=== PATIENT | female | born 1955 | race Caucasian/White ===

== ENCOUNTER 2016-11-14 12:12 | Emergency (ER) | payer OTHER ==
--- NOTE | 2016-11-14 14:01 | UC ---
Minor Trauma HPI - HPI Summary HPI Summary: tepped going down one step outdoors yesterday, fell onto R side on concrete. Has abrasions to R knee and elbow with some soreness, but does not think anything is broken as she has full ROM and function in RUE and RLE. Also hit face in fall and has marked swelling, tenderness, and bruising to R face, mainly tender over R cheekbone. No pain in neck, denies HOOVER, LOC, vomiting, dizziness, or memory problems. - History of Current Complaint Chief Complaint: UCTrauma Stated Complaint: FACIAL INJURY Time Seen by Provider: 11/14/16 13:49 Hx Obtained From: Patient ?: No Onset/Duration: Sudden Onset Onset Of Pain: Immediate Severity Initially: Mild Severity Currently: Moderate Mechanism Of Injury: Fall From A Standing Position Aggravating Factor(s): Nothing Alleviating Factor(s): Nothing Associated Signs And Symptoms: Positive: Ecchymosis, Swelling. Negative: Loss Of Consciousness - Allergies/Home Medications Allergies/Adverse Reactions: Allergies Allergy/AdvReac Type Severity Reaction Status Date / Time Codeine Allergy Rash Verified 11/14/16 13:34 Home Medications: Home Medications Hydrochlorothiazide TAB* [Hydrodiuril TAB*] 25 mg PO DAILY 11/14/16 [History Confirmed 11/14/16] PMH/Surg Hx/FS Hx/Imm Hx Endocrine History Of: Denies: Diabetes, Thyroid Disease Cardiovascular History Of: Reports: Hypertension Denies: Cardiac Disorders Respiratory History Of: Denies: COPD, Asthma GI/ History Of: Denies: Ulcer Cancer History Of: Denies: Breast Cancer - Surgical History Surgical History: Yes Surgery Procedure, Year, and Place: foot surgery, Hysterectomy, right knee meniscus repair - Family History Known Family History: Positive: Other - NONCONTRIBUTORY - Social History Lives: With Family Alcohol Use: Occasionally Substance Use Type: None Smoking Status (MU): Former Smoker Amount Used/How Often: quit 8 years ago Review of Systems Constitutional: Negative Skin: Bruising, Other - abrasions Eyes: Negative ENT: Negative Respiratory: Negative Cardiovascular: Negative Gastrointestinal: Negative Genitourinary: Negative Motor: Negative Neurovascular: Negative Musculoskeletal: Negative Neurological: Negative Psychological: Negative All Other Systems Reviewed And Are Negative: Yes Physical Exam Triage Information Reviewed: Yes Appearance: Well-Appearing, Well-Nourished Vital Signs: Initial Vital Signs Temp 98.2 F 11/14/16 13:29 Pulse 81 11/14/16 13:29 Resp 16 11/14/16 13:29 BP 149/74 11/14/16 13:29 Vital Signs Reviewed: Yes Eye Exam: Normal, Other - EOM-I Eyes: Positive: Conjunctiva Clear, Other: - PERRL ENT: Positive: Hearing grossly normal, Pharynx normal, TMs normal, Other: - tender over R zygoma. Negative: Tonsillar swelling, Tonsillar exudate Dental Exam: Normal Dental: Negative: Percussion Tenderness @, Gross Decay/Caries @, Dental Fracture @ Neck exam: Normal Neck: Positive: Supple, Nontender Respiratory Exam: Normal Respiratory: Positive: Chest non-tender, Lungs clear, Normal breath sounds, No respiratory distress, No accessory muscle use Cardiovascular Exam: Normal Cardiovascular: Positive: RRR, No Murmur Musculoskeletal Exam: Normal Musculoskeletal: Positive: Strength Intact, ROM Intact Neurological Exam: Normal Neurological: Positive: Alert Psychological Exam: Normal Skin Exam: Normal Minor Trauma Course/Dx - Differential Dx/Diagnosis Provider Diagnoses: R knee abrasion. R face contusion. R face abrasion. R elbow abrasion Discharge - Discharge Plan Condition: Stable Disposition: HOME Patient Education Materials: Abrasion (ED), Contusion in Adults (ED) Referrals: Shin Shultz MD [Primary Care Provider] - Additional Instructions: Call or return if you have new or prolonged symptoms.
--- NOTE | 2016-11-14 14:51 | RAD ---
HISTORY: Facial trauma, swelling and pain COMPARISONS: None TECHNIQUE: Multiple contiguous axial CT scans were obtained of the face without intravenous contrast, with coronal and sagittal multiplanar reformations. FINDINGS: BONES: There is no displaced fracture or dislocation. The orbital rim is intact. The zygomatic arch is intact. The pterygoid plates are intact. Degenerative changes are noted of the spine ORBITS: The globes are round. The optic nerves are symmetric. The extraocular musculature is normal. There is no post septal or intraconal inflammatory change. There is no retrobulbar hematoma. PARANASAL SINUSES: The paranasal sinuses are clear. BRAIN AND SOFT TISSUE: There is a small right malar hematoma. OTHER: None. IMPRESSION: NO FACIAL FRACTURE. RIGHT FACIAL HEMATOMA.
[2016-11-14 15:31] VITALS: BP 140/68
== END 2016-11-14 23:06 | disposition home or self-care (01) ==
LOC: UCEAST 12:12
DX: S80.211A Abrasion, right knee, initial encounter (principal); S00.81XA Abrasion of other part of head, initial encounter; S50.311A Abrasion of right elbow, initial encounter; S00.83XA Contusion of other part of head, initial encounter; W10.9XXA Fall (on) (from) unspecified stairs and steps, initial encounter; Y93.9 Activity, unspecified; Y92.9 Unspecified place or not applicable; Z88.5 Allergy status to narcotic agent; I10 Essential (primary) hypertension; Z90.710 Acquired absence of both cervix and uterus; Z87.891 Personal history of nicotine dependence
CPT/HCPCS: 70486; 99212; G0463

== ENCOUNTER 2016-11-26 11:32 | Emergency (ER) | payer OTHER ==
[2016-11-26 13:23] VITALS: BP 137/78
--- NOTE | 2016-11-26 13:49 | UC ---
Respiratory Complaint HPI - HPI Summary HPI Summary: head congestion/fullness and cough mother and boyfriend with similar sx---no fevers - History of Current Complaint Chief Complaint: UCGeneralIllness Stated Complaint: RESP ISSUE Time Seen by Provider: 11/26/16 13:27 Hx Obtained From: Patient ?: No Onset/Duration: Gradual Onset, Lasting Days - 3, Still Present Timing: Constant Severity Initially: Mild Severity Currently: Mild Pain Intensity: 3 Pain Scale Used: 0-10 Numeric Character: Cough: Productive Aggravating Factors: Nothing Alleviating Factors: Nothing Associated Signs And Symptoms: Positive: URI, Nasal Congestion, Sinus Discomfort - Allergies/Home Medications Allergies/Adverse Reactions: Allergies Allergy/AdvReac Type Severity Reaction Status Date / Time Codeine Allergy Rash Verified 11/26/16 13:23 PMH/Surg Hx/FS Hx/Imm Hx Previously Healthy: No Endocrine History Of: Denies: Diabetes, Thyroid Disease Cardiovascular History Of: Reports: Hypertension Denies: Cardiac Disorders Respiratory History Of: Denies: COPD, Asthma GI/ History Of: Denies: Ulcer Cancer History Of: Denies: Breast Cancer - Surgical History Surgical History: Yes Surgery Procedure, Year, and Place: foot surgery, Hysterectomy, right knee meniscus repair - Family History Known Family History: Positive: Other - NONCONTRIBUTORY - Social History Occupation: Employed Full-time Lives: With Family Alcohol Use: Occasionally Substance Use Type: None Smoking Status (MU): Former Smoker Amount Used/How Often: 2008 Review of Systems Constitutional: Negative Skin: Negative Eyes: Negative ENT: Ear Ache, Nasal Discharge Respiratory: Cough Cardiovascular: Negative Gastrointestinal: Negative Genitourinary: Negative Motor: Negative Neurovascular: Negative Musculoskeletal: Negative Neurological: Headache Psychological: Negative All Other Systems Reviewed And Are Negative: Yes Physical Exam Triage Information Reviewed: Yes Appearance: Well-Appearing, No Pain Distress, Well-Nourished Vital Signs: Initial Vital Signs Temp 98.1 F 11/26/16 13:15 Pulse 74 11/26/16 13:15 Resp 16 11/26/16 13:15 BP 137/78 11/26/16 13:15 Pulse Ox 98 11/26/16 13:15 Vital Signs Reviewed: Yes Eye Exam: Normal Eyes: Positive: Conjunctiva Clear ENT Exam: Normal ENT: Positive: Normal ENT inspection, Hearing grossly normal, Pharynx normal, Nasal congestion, Nasal drainage, TMs normal. Negative: Tonsillar swelling, Tonsillar exudate, Trismus, Muffled/hoarse voice Dental Exam: Normal Neck exam: Normal Neck: Positive: Supple, Nontender, No Lymphadenopathy Respiratory Exam: Normal Respiratory: Positive: Chest non-tender, Lungs clear, Normal breath sounds, No respiratory distress, No accessory muscle use Cardiovascular Exam: Normal Cardiovascular: Positive: RRR, No Murmur, Pulses Normal, Brisk Capillary Refill Musculoskeletal Exam: Normal Musculoskeletal: Positive: Strength Intact, ROM Intact, No Edema Neurological Exam: Normal Neurological: Positive: Alert, Muscle Tone Normal Psychological Exam: Normal Psychological: Positive: Normal Response To Family, Age Appropriate Behavior Skin Exam: Normal UC Diagnostic Evaluation - Laboratory O2 Sat by Pulse Oximetry: 98 Respiratory Course/Dx - Course Course Of Treatment: flonase may add antibiodics if sy continue over the next week follow with pcp, re-check BP with pcp - Differential Dx/Diagnosis Differential Diagnosis/HQI/PQRI: Bronchitis, CHF, Laryngitis, Sinusitis Provider Diagnoses: Rhinosinusitis Discharge - Discharge Plan Condition: Stable Disposition: HOME Prescriptions: Amoxicillin/Clavulanate TAB* [Augmentin TAB 875*] 875 mg PO BID #20 tab Fluticasone NASAL * [Flonase *] 2 spray BOTH NARES DAILY #1 bottle Patient Education Materials: Rhinosinusitis (ED), How to Use Nasal Mcgrath (ED) Referrals: Shin Shultz MD [Primary Care Provider] - If Needed
== END 2016-11-26 14:11 | disposition home or self-care (01) ==
LOC: UCEAST 11:32
DX: J32.9 Chronic sinusitis, unspecified (principal); I10 Essential (primary) hypertension; Z87.891 Personal history of nicotine dependence; Z88.5 Allergy status to narcotic agent
CPT/HCPCS: 99212; G0463

== ENCOUNTER 2017-06-06 10:04 | Emergency (ER) | payer OTHER ==
[2017-06-06 10:17] VITALS: BP 137/75
--- NOTE | 2017-06-06 12:50 | UC ---
Throat Pain/Nasal Mac HPI - HPI Summary HPI Summary: ST, nasal congestion, stuffy ears since yesterday. No fever or trouble breathing. Lives with 94-year-old mother, concerned about passing it to her. Melanie has had similar symptoms. - History of Current Complaint Chief Complaint: UCRespiratory Stated Complaint: SORE THROAT,RUNNING NOSE Time Seen by Provider: 06/06/17 12:16 Hx Obtained From: Patient Hx Last Menstrual Period: hysterectomy ?: No Onset/Duration: Gradual Onset, Lasting Days Cough: None Associated Signs & Symptoms: Positive: Sinus Discomfort, Nasal Discharge. Negative: Fever, Vomiting, Rash - Allergies/Home Medications Allergies/Adverse Reactions: Allergies Allergy/AdvReac Type Severity Reaction Status Date / Time Codeine Allergy Rash Verified 11/26/16 13:23 PMH/Surg Hx/FS Hx/Imm Hx Cardiovascular History: Hypertension Psychological History: Anxiety - Surgical History Surgical History: Yes Surgery Procedure, Year, and Place: foot surgery, Hysterectomy, right knee meniscus repair - Family History Known Family History: Positive: Other - NONCONTRIBUTORY - Social History Occupation: Employed Full-time Lives: With Family Alcohol Use: Rare Substance Use Type: None Smoking Status (MU): Former Smoker Amount Used/How Often: 2008 - Immunization History Most Recent Influenza Vaccination: UTD Review of Systems Constitutional: Negative Skin: Negative Eyes: Negative ENT: Sore Throat, Ear Ache, Nasal Discharge Respiratory: Negative Cardiovascular: Negative Gastrointestinal: Negative Genitourinary: Negative Motor: Negative Neurovascular: Negative Musculoskeletal: Negative Neurological: Negative Psychological: Negative Is Patient Immunocompromised?: No All Other Systems Reviewed And Are Negative: Yes Physical Exam Triage Information Reviewed: Yes Appearance: Well-Appearing, Obese Vital Signs: Initial Vital Signs Temp 96.7 F 06/06/17 10:11 Pulse 82 06/06/17 10:11 Resp 16 06/06/17 10:11 BP 137/75 06/06/17 10:11 Pulse Ox 94 06/06/17 10:11 Vital Signs Reviewed: Yes Eye Exam: Normal Eyes: Positive: Conjunctiva Clear ENT: Positive: Hearing grossly normal, Pharynx normal, Nasal congestion, TMs normal. Negative: Nasal drainage, TM bulging, TM dull, TM red, Hoarse voice Dental Exam: Normal Neck exam: Normal Neck: Positive: Supple, Nontender, No Lymphadenopathy Respiratory Exam: Normal Respiratory: Positive: Chest non-tender, Lungs clear, Normal breath sounds, No respiratory distress, No accessory muscle use Cardiovascular Exam: Normal Cardiovascular: Positive: RRR, No Murmur Musculoskeletal Exam: Normal Neurological Exam: Normal Neurological: Positive: Alert Psychological Exam: Normal Skin Exam: Normal Throat Pain/Nasal Course/Dx - Differential Dx/Diagnosis Provider Diagnoses: URI, likely viral Discharge - Discharge Plan Condition: Stable Disposition: HOME Patient Education Materials: Upper Respiratory Infection (ED) Referrals: Shin Shultz MD [Primary Care Provider] - 1 Week Additional Instructions: No signs of airway problems or secondary infection at this time. I would not be surprised if you have some worsening for a few days before you see improvement ( especially if you start to cough). Call or return if you develop increasing fever, shortness of breath, chest pain , bloody sputum, or otherwise worsen. If you have not improved at all after several days, contact your primary care physician or return here.
== END 2017-06-06 12:55 | disposition home or self-care (01) ==
LOC: UCEAST 10:04
DX: J06.9 Acute upper respiratory infection, unspecified (principal); Z87.891 Personal history of nicotine dependence
CPT/HCPCS: 99211; G0463

== ENCOUNTER 2017-06-12 10:59 | Emergency (ER) | payer OTHER ==
[2017-06-12 11:40] VITALS: BP 139/82
--- NOTE | 2017-06-12 13:26 | UC ---
Throat Pain/Nasal Mac HPI - HPI Summary HPI Summary: 61 y/o female presents to the urgent care c/o nasal congestion with green nasal discharge, productive cough for the past week. Pt reports she was seen here on 06/06/2017 Dx with URI and her symptoms are getting worse. She has subjective fever at home and mild HOOVER. she has taken Tylenol PO to alleviate symptoms. sinus pain and HOOVER is 5/10. Pt denies SOB, wheezing, chest pain, abdominal pain, N/V/D - History of Current Complaint Chief Complaint: UCRespiratory Stated Complaint: URI Time Seen by Provider: 06/12/17 12:44 Hx Obtained From: Patient Hx Last Menstrual Period: hysterectomy ?: No Onset/Duration: Gradual Onset, Lasting Weeks - 1 week, Still Present Severity: Severe Pain Intensity: 7 Pain Scale Used: 0-10 Numeric Cough: Sputum Appears - green Associated Signs & Symptoms: Positive: Sinus Discomfort, Nasal Discharge - green nasal discharge with sinus pain and pressure - Epiglottits Risk Factors Epiglottis Risk Factors: Negative - Allergies/Home Medications Allergies/Adverse Reactions: Allergies Allergy/AdvReac Type Severity Reaction Status Date / Time Codeine Allergy Rash Verified 06/12/17 11:40 PMH/Surg Hx/FS Hx/Imm Hx Previously Healthy: Yes Cardiovascular History: Hypertension - Surgical History Surgical History: Yes Surgery Procedure, Year, and Place: foot surgery, Hysterectomy, right knee meniscus repair - Family History Known Family History: Positive: Cardiac Disease, Diabetes - Social History Occupation: Employed Full-time Lives: With Family Alcohol Use: Rare Substance Use Type: None Smoking Status (MU): Former Smoker Amount Used/How Often: 2008 - Immunization History Most Recent Influenza Vaccination: UTD Review of Systems Constitutional: Fever - subjective fever at home Skin: Negative Eyes: Negative ENT: Sore Throat, Nasal Discharge, Sinus Congestion, Sinus Pain/Tenderness Respiratory: Cough - with green sputum Cardiovascular: Negative Gastrointestinal: Negative Genitourinary: Negative Motor: Negative Neurovascular: Negative Musculoskeletal: Negative Neurological: Headache - mild Psychological: Negative Is Patient Immunocompromised?: No All Other Systems Reviewed And Are Negative: Yes Physical Exam Triage Information Reviewed: Yes Vital Signs: Initial Vital Signs Temp 97.8 F 06/12/17 11:36 Pulse 89 06/12/17 11:36 Resp 16 06/12/17 11:36 BP 139/82 06/12/17 11:36 Pulse Ox 99 06/12/17 11:36 - Additional Comments Vitals: reviewed General: Well developed, well-nourished obese female sititng in the examining table with NAD. Head and face: Normocephalic and atraumatic, Positive tenderness over the frontal and maxillary sinuses.. Eyes: PERRLA, EOMI x 2. Normal conjunctiva. No eye discharge. ENT: Ears and TM with normal limits. Nose: with yellowish discharge and erythematous mucosa. Pharynx with erythema, no exudate. Neck: Supple, no JVD, no carotid bruits and no lymphadenopathy. Lungs: clear, no rales, no rhonchi, no wheezes. CVS: RRR, S1 and S2 present no murmurs or gallops appreciated. Abdomen: soft nontender with positive bowel sounds. Extremities: no edema noted. Neuro: WNL. Skin: warm and dry Throat Pain/Nasal Course/Dx - Course Course Of Treatment: 61 y/o female presents to the urgent care c/o nasal congestion with green nasal discharge, productive cough for the past week. Pt reports she was seen here on 06/06/2017 Dx with URI and her symptoms are getting worse. She has subjective fever at home and mild HOOVER. she has taken Tylenol PO to alleviate symptoms. sinus pain and HOOVER is 5/10. Pt denies SOB, wheezing, chest pain, abdominal pain, N/V/D. Hx obtained. Pt with sinusitis on examination. Pt with more 1 week of symptoms getting worse. Pt Rx Amoxicillin PO. Tessalon PO for cough. Discharge instructions explained to Pt. Advised to Return to the clinic or PCP if symptoms do not improve.Pt understood and agreed with plan of care. - Differential Dx/Diagnosis Differential Diagnosis/HQI/PQRI: Influenza, Mononucleosis, Peritonsillar Abscess , Pharyngitis, Sinusitis, Tonsillitis, Other - bronchitis Provider Diagnoses: 1- Acute bacterial sinusitis. 2-cough Discharge - Discharge Plan Condition: Stable Disposition: HOME Prescriptions: Amoxicillin PO (*) [Amoxicillin 875 MG (*)] 875 mg PO BID #20 tab Benzonatate CAP* [Tessalon 100 MG CAP*] 100 mg PO TID PRN #15 cap PRN Reason: Cough Patient Education Materials: Sinusitis (ED) Referrals: Shin Shultz MD [Primary Care Provider] - If Needed Additional Instructions: 1- Please take full course of antibiotic to avoid resistance 2-Use saline drops to clear sinuses 3-Take Tessalon tabs PO to alleviate cough, increase fluid intake, eat well and rest 4-Return to the clinic or PCP if symptoms do not improve for further management and treatment
== END 2017-06-12 13:27 | disposition home or self-care (01) ==
LOC: UCEAST 10:59
DX: J01.90 Acute sinusitis, unspecified (principal); B96.89 Other specified bacterial agents as the cause of diseases classified elsewhere; Z87.891 Personal history of nicotine dependence
CPT/HCPCS: 99212; G0463

== ENCOUNTER 2017-11-18 11:51 | Emergency (ER) | payer OTHER ==
--- OUTSIDE RECORDS SUMMARY | 2017-11-18 11:59 | XMS REPORT ---
:1955 External Reference #:[id number] Author Organization [employer] Address [address] [place] [address] Phone [phone] Care Team Providers Name Role Phone Shin Shultz M.D. Primary Care Physician Unavailable Payers Type Date Identification Numbers Payment Provider Subscriber Commercial Policy Number: [id number] [employer] Ppo/Pos/Epo/Nap Travis Salas Group Number: [id number] [id number] PayID: [id number] [place] [address] Problems Date Description Provider Status Onset: Anxiety Active Onset: Essential hypertension Active Onset: 11/05/2017 Punctate keratitis Mikayla Boothe O.D. Active Onset: 11/05/2017 Foreign body in cornea, right eye, Mikayla Boothe O.D. Active initial encounter Onset: 06/20/2016 Blepharitis Mikayla Boothe O.D. 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 Active Onset: 04/18/2015 Retinal hemorrhage Ashely Soto O.D. Active Onset: 03/31/2015 Presbyopia Ashely Soto O.D. Active Onset: 03/31/2015 Regular astigmatism Ashely Soto O.D. Active Onset: 03/31/2015 Myopia Ashely Soto O.D. Active Onset: 03/31/2015 Vitreous degeneration Ashely Soto O.D. 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 every night at bedtime x 1 weeks Amlodipine 05/02/ Active Tablets 5mg Ashely C. Besylate 2014 OlNiko jalloh Lisinopril / Active Tablets 2.5mg Unknown 0000 Prednisolone 09/12/ Hx Suspension 1% 5ml 1 drop H15.102 Ashely C. Acetate 2015 - four Charles O.DKee 05/11/ times a 2015 day left eye for 2 days, then 3x/day for 2 days, then 2x/day for 2 days, then 1x/day for 1 day Results Description No Information Procedures Date CPT Code Description Status 05/11/2016 23489 Determination Of Refractive State Completed 05/11/2016 62532 Est Patient Comprehensive Exam Completed 09/12/2015 38387 Est Patient Intermediate Exam Completed 04/18/2015 36242 Est Patient Intermediate Exam Completed 03/31/2015 60958 Determination Of Refractive State Completed 03/31/2015 60675 Est Patient Comprehensive Exam Completed 06/25/2013 97886 Determination Of Refractive State Completed 06/25/2013 05073 Est Patient Comprehensive Exam Completed 06/25/2013 201 Refit - No Change In Fit Completed 12/03/2012 37171 Est Patient Intermediate Exam Completed 04/04/2011 203 Refit Soft Toric/Monovision Completed 03/18/2011 13883 Scanning Computerized Ophthalmic Diagnostic Imag Completed Posterior Seg On 03/18/2011 25013 Determination Of Refractive State Completed 03/18/2011 07702 Est Patient Comprehensive Exam Completed 06/24/2010 46829 Visual Field Exam Extended Completed 12/23/2009 20431 Est Patient Intermediate Exam Completed 12/23/2009 65375 Scanning Laser W/Interp And Report Completed 06/18/2009 56334 Visual Field Exam Extended Completed 06/18/2009 67756 Determination Of Refractive State Completed 06/18/2009 06131 Est Patient Comprehensive Exam Completed 12/11/2008 65014 Est Patient Intermediate Exam Completed 08/23/2008 67563 Est Patient Intermediate Exam Completed 06/25/2008 89852 Visual Field Exam Extended Completed 05/31/2008 76307 Est Patient Intermediate Exam Completed 05/20/2008 40185 Est Patient Comprehensive Exam Completed 05/20/2008 32727 Determination Of Refractive State Completed 05/20/2008 04872 Scanning Laser W/Interp And Report Completed 07/06/2007 85603 Fundus Photography With Interpretation And Report Completed 07/06/2007 42792 Visual Field Exam Extended Completed 07/06/2007 51206 Determination Of Refractive State Completed 07/06/2007 40429 Est Patient Comprehensive Exam Completed 07/06/2007 33102 Pachymetry Completed 05/30/2007 90740 New Patient Intermediate Exam Completed Encounters Type Date Location Provider CPT E/M Dx Office Visit 06/20/2016 Israel Yusuf MD, Mikayla Boothe O.D. [id number] H01.001 12:00p pc H01.004 Office Visit 12/13/2011 3:45p Israel Yusuf MD, Francois Luo M.D. 62884 918.1 pc Office Visit 05/11/2009 6:30p Israel Yusuf MD, Ashely Soto O.D. 01507 379.00 pc Office Visit 05/04/2009 6:30p Israel Yusuf MD, Ashely Soto O.D. 25136 379.00 pc Office Visit 01/26/2009 7:00p Israel Yusuf MD, Ashely Soto O.D. 62812 373.12 pc Office Visit 11/25/2008 3:15p Israel Yusuf MD, Francois Luo M.D. 11860 379.01 pc Office Visit 09/03/2008 5:30p Israel Yusuf MD, Ashely Soto O.D. 13235 373.00 pc Office Visit 06/04/2008 7:15p Israel Yusuf MD, Ashely Soto O.D. 63161 373.12 pc Office Visit 08/07/2007 3:30p Israel Yusuf MD, Israel Yusuf M.D. 75077 365.01 pc Office Visit 06/05/2007 2:30p Israel Yusuf MD, Israel Yusuf M.D. 21230 372.72 Plan of Care 11/05/2017 - Mikayla Boothe O.D.H16.141 Punctate keratitis, right eyeComments: Smoking can increase the risk of developing or worsening any eye related disease , as well as affect your overall health. If you are a smoker, we strongly recommend that you quit.If you are not a smoker, we strongly recommend that you do not start. Stay out of your contacts today. Use artificial tears as neededFollow up:next available DFE/OCT nerve/VF
--- OUTSIDE RECORDS SUMMARY | 2017-11-18 11:59 | XMS REPORT ---
:1955 External Reference #:[id number] Author Organization [facility] Address [address] [place] [address] Phone [phone] Care Team Providers Name Role Phone Shin Shultz M.D. Primary Care Physician Unavailable Payers Type Date Identification Numbers Payment Provider Subscriber Commercial Policy Number: [id number] [employer] Ppo/Pos/Epo/Nap Travis Salas Group Number: [id number] [id number] PayID: [id number] [place] [address] Problems Date Description Provider Status Onset: Anxiety [...] Ashely Soto O.D. Active Onset: 03/31/2015 Myopia Ahsely Soto O.D. Active Onset: 03/31/2015 Vitreous degeneration Ashely Soto O.D. 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 ETOH Use Occasionally consumes alcohol Recreational Drug Use Denies Drug Use Smoking Patient is a former smoker Daily Caffeine Consumes on average 2 cups of regular coffee per day Allergies, Adverse Reactions, Alerts Date Description Reaction Status Severity Comments 03/31/2015 Codeine active Medications Medication Date Status Form Strength Qnty SIG Indications Ordering Provider Lisinopril / Active Tablets 2.5mg Unknown 0000 Amlodipine / Active Tablets 5mg Unknown Besylate 0000 Maxitrol 06/20/ Hx Ointment 3.5-96126- 3.500g apply H01.001 Mikayla AmayaKee 2016 - 0.1 m 07/20' to Tl, 11/16/ all lids O.D. 2018 every night at bedtime x 1 weeks Prednisolone 09/12/ Hx Suspension 1% 5ml 1 drop H15.102 Ashely CKee Acetate 2015 - four Niko Soto 05/11/ times a 2015 day left eye for 2 days, then 3x/day for 2 days, then 2x/day for 2 days, then 1x/day for 1 day Amlodipine 05/02/ Hx Tablets 5mg Ashely CKee Besylate 2014 - Niko Soto 2017 Results Description No Information Procedures Date CPT Code Description Status 05/11/2016 04053 Determination Of Refractive State Completed 05/11/2016 46158 Est Patient Comprehensive Exam Completed 09/12/2015 55336 Est Patient Intermediate Exam Completed 04/18/2015 17918 Est Patient Intermediate Exam Completed 03/31/2015 97095 Determination Of Refractive State Completed 03/31/2015 04065 Est Patient Comprehensive Exam Completed 06/25/2013 07851 Determination Of Refractive State Completed 06/25/2013 79410 Est Patient Comprehensive Exam Completed 06/25/2013 201 Refit - No Change In Fit Completed 12/03/2012 55776 Est Patient Intermediate Exam Completed 04/04/2011 203 Refit Soft Toric/Monovision Completed 03/18/2011 13746 Scanning Computerized Ophthalmic Diagnostic Imag Completed Posterior Seg On 03/18/2011 39372 Determination Of Refractive State Completed 03/18/2011 25323 Est Patient Comprehensive Exam Completed 06/24/2010 95502 Visual Field Exam Extended Completed 12/23/2009 72698 Est Patient Intermediate Exam Completed 12/23/2009 74482 Scanning Laser W/Interp And Report Completed 06/18/2009 48031 Visual Field Exam Extended Completed 06/18/2009 63293 Determination Of Refractive State Completed 06/18/2009 53856 Est Patient Comprehensive Exam Completed 12/11/2008 90738 Est Patient Intermediate Exam Completed 08/23/2008 44196 Est Patient Intermediate Exam Completed 06/25/2008 16714 Visual Field Exam Extended Completed 05/31/2008 04268 Est Patient Intermediate Exam Completed 05/20/2008 05373 Est Patient Comprehensive Exam Completed 05/20/2008 48070 Determination Of Refractive State Completed 05/20/2008 05019 Scanning Laser W/Interp And Report Completed 07/06/2007 18246 Fundus Photography With Interpretation And Report Completed 07/06/2007 90649 Visual Field Exam Extended Completed 07/06/2007 69890 Determination Of Refractive State Completed 07/06/2007 33101 Est Patient Comprehensive Exam Completed 07/06/2007 61243 Pachymetry Completed 05/30/2007 52121 New Patient Intermediate Exam Completed Encounters Type Date Location Provider CPT E/M Dx Office Visit 11/05/2017 Israel Yusuf MD, Mikayla Boothe O.D. 07407 H16.141 8:00a pc Office Visit 06/20/2016 Israel Yusuf MD, Mikayla Boothe O.D. 99413 H01.001 12:00p pc H01.004 Office Visit 12/13/2011 3:45p Israel Yusuf MD, Francois Luo M.D. 24210 918.1 pc Office Visit 05/11/2009 6:30p Israel Yusuf MD, Ashely Soto O.D. 50936 379.00 pc Office Visit 05/04/2009 6:30p Israel Yusuf MD, Ashely Soto O.D. 09065 379.00 pc Office Visit 01/26/2009 7:00p Israel Yusuf MD, Ashely Soto O.D. 48086 373.12 pc Office Visit 11/25/2008 3:15p Israel Yusuf MD, Francois Luo M.D. 53919 379.01 pc Office Visit 09/03/2008 5:30p Israel Yusuf MD, Ashely Soto O.D. 90120 373.00 pc Office Visit 06/04/2008 7:15p Israel Yusuf MD, Ashely Soto O.D. 74293 373.12 pc Office Visit 08/07/2007 3:30p Israel Yusuf MD, Israel Yusuf M.D. 36524 365.01 pc Office Visit 06/05/2007 2:30p Israel Yusuf MD, Israel Yusuf M.D. 29118 372.72 Plan of Care 11/17/2017 - Mikayla Boothe O.D.H21.233 Degeneration of iris (pigmentary), bilateralComments:Smoking can increase the risk of developing or worsening any eye related disease, as well as affect your overall health. If you are a smoker , we strongly recommend that you quit.If you are not a smoker, we strongly recommend that you do not start.Follow up:1 yearH43.813 Vitreous degeneration, bilateralComments:You have Vitreous Floaters. If you have any changed in your floaters or flashing lights, please contact this office.H52.13 Myopia, bilateralComments:You have Myopia, or near sightedness. I have given you a prescription for glasses.H52.223 Regular astigmatism, bilateralComments: Astigmatism is a common vision condition that happens when a person's cornea is not symmetrical. Dr. Boothe has given you a prescription to correct for this.H52.4 PresbyopiaComments:You have presbyopia. This is when the lens in your eye loses the ability to change focus, and happens as we age. A pair of reading glasses will help you see up close.
[2017-11-18 12:03] VITALS: BP 134/90
--- NOTE | 2017-11-18 12:38 | UC ---
Throat Pain/Nasal Mac HPI - HPI Summary HPI Summary: 62 Y/O female being seen for complaint of nasal congestion and cough over the last three days. States fever and chills several days ago. Denies dyspnea, nausea or voting. Mild throat irritation. Medical history and medications reviewed at this visit. Mildly elevated blood pressure with history of HTN. Compliant with medications. - History of Current Complaint Chief Complaint: UCGeneralIllness Stated Complaint: COUGH, SORE THROAT Time Seen by Provider: 11/18/17 12:11 Hx Obtained From: Patient Hx Last Menstrual Period: hysterectomy Onset/Duration: Gradual Onset, Lasting Days Severity: Mild Pain Intensity: 2 Pain Scale Used: 0-10 Numeric Cough: Productive Associated Signs & Symptoms: Positive: Sinus Discomfort, Nasal Discharge - Epiglottits Risk Factors Epiglottis Risk Factors: Negative - Allergies/Home Medications Allergies/Adverse Reactions: Allergies Allergy/AdvReac Type Severity Reaction Status Date / Time codeine Allergy Rash Verified 11/18/17 11:57 Home Medications: Home Medications Esomeprazole(NF) [Nexium(NF)] 20 mg PO DAILY 11/18/17 [History Confirmed ] PMH/Surg Hx/FS Hx/Imm Hx Previously Healthy: Yes Cardiovascular History: Hypertension GI/ History: Gastroesophageal Reflux - Surgical History Surgical History: Yes Surgery Procedure, Year, and Place: foot surgery, Hysterectomy, right knee meniscus repair - Family History Known Family History: Positive: Cardiac Disease, Diabetes, Other - NONCONTRIBUTORY - Social History Alcohol Use: Weekly Alcohol Amount: 2-5 drinks weekly Substance Use Type: None Smoking Status (MU): Former Smoker Amount Used/How Often: 2008 - Immunization History Most Recent Influenza Vaccination: UTD Review of Systems Constitutional: Negative Skin: Negative Eyes: Negative ENT: Nasal Discharge, Sinus Congestion Respiratory: Cough Cardiovascular: Negative Gastrointestinal: Negative Genitourinary: Negative Motor: Negative Neurovascular: Negative Musculoskeletal: Negative Neurological: Negative Psychological: Negative Is Patient Immunocompromised?: No All Other Systems Reviewed And Are Negative: Yes Physical Exam Triage Information Reviewed: Yes Appearance: Well-Appearing Vital Signs: Initial Vital Signs Temp 98.8 F 11/18/17 11:59 Pulse 84 11/18/17 11:59 Resp 16 11/18/17 11:59 BP 134/90 11/18/17 11:59 Pulse Ox 98 05/05/18 11:59 Vital Signs Reviewed: Yes Eye Exam: Normal Eyes: Positive: Conjunctiva Clear ENT Exam: Other ENT: Positive: Pharynx normal, Nasal congestion, Nasal drainage Neck exam: Normal Neck: Positive: No Lymphadenopathy Respiratory Exam: Normal Respiratory: Positive: Lungs clear Cardiovascular Exam: Normal Cardiovascular: Positive: RRR Abdominal Exam: Normal Bowel Sounds: Positive: Present Musculoskeletal Exam: Normal Neurological Exam: Normal Psychological Exam: Normal Skin Exam: Normal Throat Pain/Nasal Course/Dx - Differential Dx/Diagnosis Differential Diagnosis/HQI/PQRI: Pharyngitis, Sinusitis, Tonsillitis, URI Provider Diagnoses: Sinusitis Discharge - Sign-Out/Discharge Documenting (check all that apply): Discharge/Admit/Transfer - Discharge Plan Condition: Stable Disposition: HOME Patient Education Materials: Sinusitis (ED) Referrals: Shin Shultz MD [Primary Care Provider] - Additional Instructions: Take medications as directed. If symptoms do not improve over the next few days please follow up with your primary medical provider or return to the Urgent care. - Billing Disposition and Condition Condition: STABLE Disposition: HOME
== END 2017-11-18 12:59 | disposition home or self-care (01) ==
LOC: UCEAST 11:51
DX: J32.9 Chronic sinusitis, unspecified (principal); I10 Essential (primary) hypertension; K21.9 Gastro-esophageal reflux disease without esophagitis; Z88.5 Allergy status to narcotic agent; Z87.891 Personal history of nicotine dependence
CPT/HCPCS: 99212; G0463

== ENCOUNTER 2018-06-23 09:59 | Emergency (ER) | payer OTHER ==
[2018-06-23 10:06] VITALS: BP 128/84
--- NOTE | 2018-06-23 10:14 | UC ---
Hand/Wrist HPI - HPI Summary HPI Summary: 62 y/o female presents to the urgent care c/o of a small bump in the lateral side of her RT middle finger she noticed 2 days ago. Pt reports is mildly painful at touch, 1/10 and more prominent when she bends her finger. Pt denies, rash fever, numbness or tingling sensation over the middle finger, SOB, chest pain, abdominal pain, N/V/D. Pt has Hx of hiatal hernia and GERD. - History Of Current Complaint Chief Complaint: UCSkin Stated Complaint: SKIN COMPLAINT Time Seen by Provider: 06/23/18 10:13 Hx Obtained From: Patient Hx Last Menstrual Period: hysterectomy Onset/Duration: Gradual Onset, Lasting Days - 2 days, Still Present Severity Initially: Mild Severity Currently: Mild Pain Intensity: 1 Pain Scale Used: 0-10 Numeric Character Of Pain: Dull Aggravating Factor(s): Flexion - of middle finger Alleviating Factor(s): Rest Associated Signs And Symptoms: Positive: Swelling - mild. Negative: Redness, Bruising, Fever, Weakness, Numbness/Tingling, Other Related History: Dominant Hand Right - Allergies/Home Medications Allergies/Adverse Reactions: Allergies Allergy/AdvReac Type Severity Reaction Status Date / Time codeine Allergy Rash Verified 11/18/17 11:57 Home Medications: Home Medications Esomeprazole Magnesium [Nexium] 1 tab PO DAILY 06/23/18 [History Confirmed 06/23] amLODIPine TAB* [Norvasc 5 mg TAB*] 1 tab PO DAILY 06/23/18 [History Confirmed 06/23/18] PMH/Surg Hx/FS Hx/Imm Hx Previously Healthy: Yes Cardiovascular History: Hypertension Respiratory History: Asthma Other Respiratory History: hiatal hernia - Surgical History Surgical History: Yes Surgery Procedure, Year, and Place: foot surgery, Hysterectomy, right knee meniscus repair - Family History Known Family History: Positive: Cardiac Disease, Diabetes Family History: breast cancer - Social History Occupation: Retired Lives: With Family Alcohol Use: Weekly Alcohol Amount: 2-5 drinks weekly Substance Use Type: None Smoking Status (MU): Former Smoker Amount Used/How Often: 2008 - Immunization History Most Recent Influenza Vaccination: UTD Review of Systems All Other Systems Reviewed And Are Negative: Yes Constitutional: Positive: Negative Skin: Positive: Other - movable bump in the RT middle finger w/ discrete pain, Eyes: Positive: Negative ENT: Positive: Negative Respiratory: Positive: Negative Cardiovascular: Positive: Negative Gastrointestinal: Positive: Negative Genitourinary: Positive: Negative Motor: Positive: Negative Neurovascular: Positive: Negative Musculoskeletal: Positive: Negative Neurological: Positive: Negative Psychological: Positive: Negative Is Patient Immunocompromised?: No Physical Exam - Summary Physical Exam Summary: Vital Signs Reviewed: Yes General: Well developed well nourished female sitting in the examining table w/ o any apparent distress Eyes: Positive: Conjunctiva Clear - PERRLA, EOMI ENT: Positive: Normal ENT inspection, Hearing grossly normal, Pharynx normal, TMs normal Neck: Positive: Supple, Nontender, No Lymphadenopathy Respiratory: Positive: Chest non-tender, Lungs clear, Normal breath sounds, No respiratory distress Cardiovascular: Positive: RRR, No Murmur, Pulses Normal, Brisk Capillary Refill Abdomen Description: Positive: Nontender, No Organomegaly, Soft. Negative: CVA Tenderness (R), CVA Tenderness (L) Bowel Sounds: Positive: Present Musculoskeletal: Strength Intact, No Edema, RT Hand/Fingers: the L hand is without obvious asymmetry or deformity when compared to the R hand. Positive discrete movable cyst on the medial aspect of the RT 3rh PIPJ w/ mild tenderness to palpation. no erythema, atrophy, or obvious deformity. No surface trauma, open wounds,bony deformity. Normal cascade of fingers. Normal flexion and extension of all fingers, FDS and FDP intact against resistance. No focal fullness, throbbing pain, swelling of finger tip. Pulses and capillary refill WNL, positive reflexes and sensation intact Neurological Exam: Normal Psychological Exam: Normal Skin Exam: Normal Triage Information Reviewed: Yes Vital Signs: Initial Vital Signs Temp 96.7 F 06/23/18 10:02 Pulse 67 06/23/18 10:02 Resp 16 06/23/18 10:02 BP 128/84 06/23/18 10:02 Pulse Ox 99 06/23/18 10:02 Hand/Wrist Course/Dx - Course Course Of Treatment: 62 y/o female presents to the urgent care c/o of a small bump in the lateral side of her RT middle finger she noticed 2 days ago. Pt reports is mildly painful at touch, 1/10 and more prominent when she bends her finger. Pt denies, rash fever, numbness or tingling sensation over the middle finger, SOB, chest pain, abdominal pain, N/V/D. Pt has Hx of hiatal hernia and GERD. Pt w/ prossible a ganglion cyst on examination. RT middle figner X-ray ordered r/o arthritis or other abnomality: Impression: No fracture or acute bony abnormality observed. Pt w/ possible ganglion cyst medial aspect of RT 3rd PIPJ on examination. Pt advised to take tylenol PO to alleviate pain and advised to apply cold compresses and if she developes severe pain or it increases in size to f/u w/ her PCP or Orthopedic DR Burch for furthe management. Pt educated on ganglion cysts. pt understood and agreed w/ plan of care. - Differential Dx/Diagnosis Differential Diagnosis/HQI/PQRI: Bursitis, Contusion, Sprain, Strain, Tendonitis , Tenosynovitis, Other - ganglion cysts Provider Diagnosis: Ganglion cyst of finger of right hand Discharge - Sign-Out/Discharge Documenting (check all that apply): Patient Departure - d/c home All imaging exams completed and their final reports reviewed: Yes - Discharge Plan Condition: Stable Disposition: HOME Patient Education Materials: Ganglion Cysts (ED) Referrals: Shin Shultz MD [Primary Care Provider] - 1 Week Benjamin Burch MD [Medical Doctor] - 1 Week Additional Instructions: 1- Please take Tylenol PO q6hrs orn to alleviate pain and swelling. 2- Please apply ice to decrease swelling. 3- Please f/u with Orthopedic or your PCP if cyst increses in size or it becomes very painful or you develop numbness or tingling sensation over the finger for further evaluation and treatment. - Billing Disposition and Condition Condition: STABLE Disposition: Home
== END 2018-06-23 11:26 | disposition home or self-care (01) ==
LOC: UCEAST 09:59
DX: Z88.5 Allergy status to narcotic agent (principal); I10 Essential (primary) hypertension; Z87.891 Personal history of nicotine dependence; M67.441 Ganglion, right hand
CPT/HCPCS: 73140; 99211; G0463